=== PATIENT | female | born 1990 | race Caucasian/White ===

== ENCOUNTER 2020-02-08 19:34 | Emergency (ER) | payer BC ==
[2020-02-08 20:09] VITALS: O2SAT 99
[2020-02-08] MEDS: SODIUM CHLORIDE 0.9% 1000ML 1,000 ML IVS ONE (20:53)
[2020-02-08] MEDS: POTASSIUM CHLORIDE ELIXIR 20 MEQ/15 ML UD PO ONE (20:53)
[2020-02-08 22:18] VITALS: BP 121/64; TEMP 98
--- NOTE | 2020-02-08 22:27 | ED.PDOC ---
History of Present Illness - General Chief Complaint: Respiratory Problem Stated Complaint: heart racing short of breath Time Seen by Provider: 02/08/20 19:43 Source: patient Exam Limitations: no limitations - History of Present Illness Initial Comments: The patient is a 29-year-old female presents emergency room secondary to a feeling of palpitations. The patient has had a couple of episodes over the last week. The patient [place] a good bit in the heat recently. No nausea vomiting or diarrhea. No syncope. No real chest pain. Simply a feeling of palpitations. The patient did have several episodes while she was here and she was actually in a sinus tachycardia at a rate of about 110 bpm. No evidence of any other arrhythmia. Timing/Duration: 1 hour Severity: mild Improving Factors: nothing Worsening Factors: nothing Associated Symptoms: denies symptoms Allergies/Adverse Reactions: Allergies NO KNOWN ALLERGY Allergy (Verified 02/08/20 20:13) Home Medications: Ambulatory Orders Potassium Chloride [Potassium Chloride ER] 10 meq PO DAILY #14 cap 02/08/20 Review of Systems - Review of Systems Constitutional: States: no symptoms reported EENTM: States: no symptoms reported Respiratory: States: no symptoms reported Cardiology: States: palpitations Gastrointestinal/Abdominal: States: no symptoms reported Genitourinary: States: no symptoms reported Musculoskeletal: States: no symptoms reported Skin: States: no symptoms reported Neurological: States: anxiety Endocrine: States: no symptoms reported All other Systems: No Change from Baseline Past Medical History (General) - Patient Medical History Hx Seizures: No Hx Stroke: No Hx Dementia: No Hx Asthma: No Hx of COPD: No Hx Cardiac Disorders: No Hx Congestive Heart Failure: No Hx Pacemaker: No Hx Hypertension: No Hx Thyroid Disease: No Hx Diabetes: No Hx Gastroesophageal Reflux: No Hx Renal Disease: No Hx Cancer: No Hx of HIV: No Hx Hepatitis C: No Hx MRSA: No Surgical History: no surgical history - Vaccination History Hx Tetanus, Diphtheria Vaccination: No Hx Influenza Vaccination: No Hx Pneumococcal Vaccination: No Immunizations Up to Date: No - Social History Hx Tobacco Use: No Hx Alcohol Use: Yes Hx Substance Use: No Hx Substance Use Treatment: No Hx Depression: No - Female History Patient is a Female of Child Bearing Age (10 -59 yrs old): Yes Family Medical History - Family History Mother Family History: Unknown Physical Exam - Physical Exam General Appearance: Alert, Anxious, No apparent distress Eye Exam: bilateral normal Ears, Nose, Throat: hearing grossly normal, normal ENT inspection Neck: full range of motion, supple Respiratory: lungs clear, normal breath sounds, no respiratory distress, no accessory muscle use Cardiovascular/Chest: normal peripheral pulses, no edema, tachycardia - Mild sinus tachycardia Peripheral Pulses: radial,right: 2+, radial,left: 2+ Gastrointestinal/Abdominal: non tender, soft Rectal Exam: deferred Back Exam: no CVA tenderness, no vertebral tenderness Extremity: normal range of motion, non-tender, normal inspection, no pedal edema, normal capillary refill 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 The patient was feeling her sinus tachycardia, no other arrhythmia was noted on 3 hours of monitoring. The patient was mildly moderately dehydrated and received a liter of IV fluids. She also had mild hypokalemia and received a dose of potassium. She will be written for a short prescription of oral potassium for the next few weeks. She is to have her level rechecked in around 3 weeks. It is possible the patient may have developed very mild heat exhaustion over the last week. She should avoid overheating over the coming week and she needs to keep her self well-hydrated. ER warnings are given for any significant worsening. Obviously if symptoms change then work-up may need to be changed. The patient tested negative for coronavirus here today. [email or web address] [id number] 02/08/20 22:30 - Results/Orders Results/Orders: Chest x-ray shows no acute pathology. EKG shows normal sinus rhythm at 80 bpm. Sinus arrhythmia. Normal R wave progression. No ST segment or T wave changes indicative of acute ischemia. Normal QT interval. Laboratory Tests 02/08/20 02/08/2020 19:57 19:57 19:57 WBC 8.4 RBC 4.70 Hgb 14.3 Hct 42.3 MCV 89.9 MCH 30.4 MCHC 33.8 RDW 12.9 Plt Count 254 MPV 7.5 Absolute Neuts (auto) 5.30 Absolute Lymphs (auto) 2.40 Absolute Monos (auto) 0.60 Absolute Eos (auto) 0.10 Absolute Basos (auto) 0.00 Neutrophils % 62.8 Lymphocytes % 28.1 Monocytes % 7.7 Eosinophils % 1.0 Basophils % 0.4 PT 9.3 INR < 1.00 PTT (SP) 25.7 Sodium 137 Potassium 3.3 L Chloride 107 Carbon Dioxide 24 Anion Gap 9.3 L BUN 11 Creatinine 0.89 BUN/Creatinine Ratio 12.4 Random Glucose 165 H Serum Osmolality 276.9 Calcium 9.1 Magnesium 1.9 Total Bilirubin 0.5 AST 16 ALT 15 Alkaline Phosphatase 64 Creatine Kinase 75 CK-MB (CK-2) 1.0 CK-MB (CK-2) % Not Reportable Troponin I < 0.02 B-Natriuretic Peptide 26.4 Serum Total Protein 7.2 Albumin 3.8 Globulin 3.4 Albumin/Globulin Ratio 1.1 TSH 2.16 Serum HCG, Qual Urine Color Urine Appearance Urine pH Ur Specific [place] Urine Protein Urine Glucose (UA) Urine Ketones Urine Blood Urine Nitrite Urine Bilirubin Urine Urobilinogen Ur Leukocyte Esterase Urine RBC Urine WBC Ur Epithelial Cells Urine Bacteria Urine Mucus 02/08/20 02/08/20 19:57 20:30 WBC RBC Hgb Hct MCV MCH MCHC RDW Plt Count MPV Absolute Neuts (auto) Absolute Lymphs (auto) Absolute Monos (auto) Absolute Eos (auto) Absolute Basos (auto) Neutrophils % Lymphocytes % Monocytes % Eosinophils % Basophils % PT INR PTT (SP) Sodium Potassium Chloride Carbon Dioxide Anion Gap BUN Creatinine BUN/Creatinine Ratio Random Glucose Serum Osmolality Calcium Magnesium Total Bilirubin AST ALT Alkaline Phosphatase Creatine Kinase CK-MB (CK-2) CK-MB (CK-2) % Troponin I B-Natriuretic Peptide Serum Total Protein Albumin Globulin Albumin/Globulin Ratio TSH Serum HCG, Qual Negative Urine Color Yellow Urine Appearance Clear Urine pH 6.0 Ur Specific [place] 1.020 Urine Protein Negative Urine Glucose (UA) Negative Urine Ketones Negative Urine Blood Negative Urine Nitrite Negative Urine Bilirubin Negative Urine Urobilinogen 0.2 Ur Leukocyte Esterase Negative Urine RBC 0 Urine WBC 0 Ur Epithelial Cells 0-1 Urine Bacteria Rare Urine Mucus Small Departure - Departure Clinical Impression: Dehydration, Sinus tachycardia, Hypokalemia Disposition: Discharge to Home or Self Care Condition: Fair Departure Forms: ED Discharge - Pt. Copy, Patient Portal Self Enrollment Instructions: Dehydration, Adult (DC), Hypokalemia (DC) Diet: bland diet Activity: increase activity as tolerated Referrals: IQRA PORTILLO [Primary Care Provider] - 1-2 Weeks Prescriptions: Potassium Chloride [Potassium Chloride ER] 10 meq PO DAILY #14 cap Home Medications: Ambulatory Orders Potassium Chloride [Potassium Chloride ER] 10 meq PO DAILY #14 cap 02/08/20 Additional Instructions: The patient is a 29-year-old female presented emergency room secondary to a feeling of palpitations. The patient was feeling her sinus tachycardia, no other arrhythmia was noted on 3 hours of monitoring. The patient was mildly moderately dehydrated and received a liter of IV fluids. She also had mild hypokalemia and received a dose of potassium. She will be written for a short prescription of oral potassium for the next few weeks. She is to have her level rechecked in around 3 weeks. It is possible the patient may have developed very mild heat exhaustion over the last week. She should avoid overheating over the coming week and she needs to keep her self well-hydrated. ER warnings are given for any significant worsening. Obviously if symptoms change then work-up may need to be changed. The patient tested negative for coronavirus here today.
== END 2020-02-08 22:37 | disposition home or self-care (01) ==
LOC: ER 19:34
DX: E86.0 Dehydration (principal); R00.0 Tachycardia, unspecified; E87.6 Hypokalemia
CPT/HCPCS: 71045; 80053; 81001; 82550; 82553; 83735; 83880; 84443; 84484; 84703; 85025; 85610; 85730; 87635; 93005; J7030